=== PATIENT | male | born 1980 | race Caucasian/White ===

== ENCOUNTER 2021-06-15 12:34 | Emergency (ER) | payer BC, SELFPAY ==
[2021-06-15 12:39] VITALS: BP 135/67; PULSE 62; RESP 16; TEMP 36.3; O2SAT 99
--- NOTE | 2021-06-15 12:43 | ED.URI ---
HPI - URI/Sore Throat General Chief Complaint: Upper Respiratory Infection Stated Complaint: DRAINAGE/SINUS CONGESTION/EARACHE Time Seen by Provider: 06/15/21 12:44 Source: patient, RN notes reviewed and old records reviewed Mode of arrival: ambulatory Limitations: no limitations History of Present Illness HPI Narrative: 40 year old male who presents to [facility] care with one week duration of sinus congestion, sinus pressure, drainage which is yellowish green and some brown with some blood streak noted. Patient reports that last evening he started having bilateral ear pressure with pain to the right ear. He states that he has been taking Ibuprofen, Dixie, Sudafed and Mucinex for his symptoms with out resolution. Patient verbalizes history of sinus infections and seasonal allergies. MD elicited complaint: rhinorrhea, nasal congestion, sinus pain and other (right ear pain) Pertinent past history: sinusitis and seasonal allergies Onset (ago): week(s) (1) Consistency: progressively worsening Severity: moderate Description of mucous: yellow, green, purulent and bloody Able to tolerate fluids by mouth: Yes Relieving factors: nothing Associated symptoms: rhinorrhea, nasal congestion and ear pain Treatments prior to arrival: ibuprofen and other (Mucinex, Sudafed, Dixie) Related Data Allergies Allergy/AdvReac Type Severity Reaction Status Date / Time cefaclor Allergy Unknown HIVES Verified 07/29/18 09:07 MOXIFLOXACIN HCL Allergy Unknown SWELLING Uncoded 07/29/18 09:07 HANDS AND TONGUE Review of Systems Review of Systems: CONSTITUTIONAL: Denies fever, chills, or sweats. EYES: Denies visual changes, redness, or discharge. ENT: Positive for rhinorrhea, congestion, no sore throat, bilateral otalgia. CARDIOVASCULAR: Denies chest pain, palpitations, or edema. RESPIRATORY: Denies cough or dyspnea. GASTROINTESTINAL: Denies abdominal pain, nausea, vomiting, or diarrhea. GENITOURINARY: Denies dysuria or hematuria. SKIN: Denies rash or itching. MUSCULOSKELETAL: Denies back pain, joint pain, or myalgia. NEUROLOGIC: positive for frontal headache, numbness, or weakness. PSYCHIATRIC: Denies anxiety or depression. All systems reviewed & are unremarkable except as noted in HPI and below PMFSH Past Medical History Medical History (Updated 06/15/21 @ 13:04 by Amina Woods NP) Seasonal allergies Sinusitis Surgical History Surgical History (Updated 06/15/21 @ 13:05 by Amina Woods NP) No history of previous surgery Social History Social History (Updated 06/15/21 @ 13:04 by Amina Woods NP) Smoking status: Never smoker Alcohol intake: current Alcohol use details: social Substance use: never Living arrangements: with family Gender identity (if verbalized by the patient): Male Exam Narrative: GENERAL: Well-appearing, well-nourished, and in no acute distress. HEAD: Normocephalic, atraumatic. EYES: PERRLA and EOMI. ENT: Nares edematous, clear rhinorrhea no epistaxis. Mucous membranes moist.Right TM red with bulging noted, left TM dull light reflex, throat with minimal redness and post nasal drainage noted no lesions or tonsil swelling NECK: Supple.no lymphadenopathy CHEST: Clear to auscultation. No respiratory distress.SAO2 99% on room air HEART: Regular rate and rhythm. No murmur heard. Normal peripheral pulses. ABDOMEN: Soft, nontender, nondistended, normal active bowel sounds. EXTREMITIES: Normal range of motion. No edema. SKIN: Warm, dry, no rash. NEURO: No focal deficits. Alert and oriented x3. Course Course Level of Care: Express Care Visit Vital Signs Vital signs: Vital Signs Temperature 36.3 C L 06/15/21 12:39 Pulse Rate 62 06/15/21 12:39 Respiratory Rate 16 06/15/21 12:39 Blood Pressure 135/67 06/15/21 12:39 Pulse Oximetry 99 06/15/21 12:39 Temperature 36.3 C L 06/15/21 12:39 Pulse Rate 62 06/15/21 12:39 Respiratory Rate 16 06/15/21 12:39 Blood Pressure
== END 2021-06-15 12:57 | disposition home or self-care (01) ==
PROVIDERS: Emergency Provider Registered Nurse; PCP Family Medicine
DX: H66.91 Otitis media, unspecified, right ear (principal); J01.40 Acute pansinusitis, unspecified
CPT/HCPCS: 99213; G0463

== ENCOUNTER 2021-11-06 19:30 | Emergency (ER) | payer BC, SELFPAY ==
[2021-11-06 19:37] VITALS: BP 135/75; PULSE 56; RESP 16; TEMP 36.4; O2SAT 100
--- NOTE | 2021-11-06 19:43 | ED.URI ---
HPI - URI/Sore Throat General Chief Complaint: Upper Respiratory Infection Stated Complaint: SORE THROAT/L EARACHE Time Seen by Provider: 11/06/21 19:46 Source: patient, RN notes reviewed and old records reviewed Mode of arrival: ambulatory Limitations: no limitations History of Present Illness HPI Narrative: 40 year old male who presents to [facility] care with complaints of one week duration of left ear pain and sore throat. He reports that he flew 2 weeks ago and had some pain in left ear on descent but went away once landed. He reports that he has been taking Sudafed and Ibuprofen for his discomfort, has taken 4 home COVID tests which have been negative. Patient reports that his left ear hurts worse when he eats and swallows.Patient denies any fevers, chills or sweats or body aches. MD elicited complaint: sore throat and other Pain scale (0-10): 5 Related Data Allergies Allergy/AdvReac Type Severity Reaction Status Date / Time cefaclor Allergy Unknown HIVES Verified 07/29/18 09:07 MOXIFLOXACIN HCL Allergy Unknown SWELLING Uncoded 07/29/18 09:07 HANDS AND TONGUE Review of Systems Review of Systems: CONSTITUTIONAL: Denies fever, chills, or sweats. EYES: Denies visual changes, redness, or discharge. ENT: Reports minimal rhinorrhea, congestion, positive for sore throat, left otalgia. CARDIOVASCULAR: Denies chest pain, palpitations, or edema. RESPIRATORY: Denies cough or dyspnea. GASTROINTESTINAL: Denies abdominal pain, nausea, vomiting, or diarrhea. GENITOURINARY: Denies dysuria or hematuria. SKIN: Denies rash or itching. MUSCULOSKELETAL: Denies back pain, joint pain, or myalgia. NEUROLOGIC: Denies headache, numbness, or weakness. PSYCHIATRIC: Denies anxiety or depression. All systems reviewed & are unremarkable except as noted in HPI and below PMFSH Past Medical History Medical History (Updated 11/07/21 @ 00:01 by Rafi Haas) Seasonal allergies Sinusitis Surgical History Surgical History (Updated 06/15/21 @ 13:05 by Amina Woods NP) No history of previous surgery Social History Social History (Updated 06/15/21 @ 13:04 by Amina Woods NP) Smoking status: Never smoker Alcohol intake: current Alcohol use details: social Substance use: never Gender identity (if verbalized by the patient): Male Comments At time of signature, agree with nursing past medical, surgical, social and family history. There is no relevant family history pertinent to the presenting complaint Exam Narrative: GENERAL: Well-appearing, well-nourished, and in no acute distress. HEAD: Normocephalic, atraumatic. EYES: PERRLA and EOMI. ENT: Nares with minimal redness clear scant amounts of rhinorrhea no epistaxis. Mucous membranes moist.TM's normal with dull light reflex on left, some redness to left ear canal no drainage.throat with minimal redness no lesions or exudates minimal tonsil enlargement NECK: Supple.no lymphadenopathy CHEST: Clear to auscultation. No respiratory distress.SAO2 100% on room air HEART: Regular rate and rhythm. No murmur heard. Normal peripheral pulses. ABDOMEN: Soft, nontender, nondistended, normal active bowel sounds. EXTREMITIES: Normal range of motion. No edema. SKIN: Warm, dry, no rash. NEURO: No focal deficits. Alert and oriented x3. Course Course Level of Care: Express Care Visit Vital Signs Vital signs: Vital Signs Temperature 36.4 C 11/06/21 19:37 Pulse Rate 56 L 11/06/21 19:37 Respiratory Rate 16 11/06/21 19:37 Blood Pressure 135/75 11/06/21 19:37 Pulse Oximetry 100 11/06/21 19:37 Temperature 36.4 C 11/06/21 19:37 Pulse Rate 56 L 11/06/21 19:37 Respiratory Rate 16 11/06/21 19:37 Blood Pressure 135/75 11/06/21 19:37 Pulse Oximetry 100 11/06/21 19:37 MDM - URI/Sore Throat Differential Diagnosis Differential diagnosis: Likely upper respiratory infection, sinusitis, viral infection, pharyngitis and other (Eustachian tube dysfunc
== END 2021-11-06 20:09 | disposition home or self-care (01) ==
PROVIDERS: Emergency Provider Registered Nurse; PCP Family Medicine
DX: H60.92 Unspecified otitis externa, left ear (principal); H69.92 Unspecified Eustachian tube disorder, left ear
CPT/HCPCS: 87081; 87880; 99213; G0463